=== PATIENT | female | born 1970 | race Hispanic/Latino ===

== ENCOUNTER 2023-08-28 23:39 | Inpatient (IN) | payer OTHER ==
[~2023-08-28] VITALS: Ht 152.4 cm; Wt 71.2 kg
[2023-08-28] MEDS ORDERED: DILTIAZEM HCL 5 MG/ML 5 ML VIAL IV STA (23:46)
[2023-08-28] MEDS ORDERED: ENOXAPARIN INJ 80 MG/0.8 ML SYR SC ONE (23:52)
[2023-08-28] MEDS: ENOXAPARIN INJ 80 MG/0.8 ML SYR SC SCH (23:54)
[2023-08-28] MEDS ORDERED: AMIODARONE HCL 100 ML IV ONE (23:59)
[2023-08-28] MEDS ORDERED: AMIODARONE 900MG 500 ML IV ONE (23:59)
[2023-08-29] VITALS (12 sets, daily range): BP systolic 112–152; BP diastolic 63–82; PULSE 71–158; RESP 12–18; TEMP 98.3; O2SAT 96–100
[2023-08-29] LABS: BASOPHILS # (AUTO) 0.1 (0.0-0.1); BASOPHILS % 0.9 % (0.0-1.0); EOSINOPHILS # (AUTO) 0.1 (0.0-0.4); EOSINOPHILS % 0.9 % (0.0-6.0); HEMATOCRIT 42.3 % (34.2-44.1); HEMOGLOBIN 14.4 g/dL (12.0-16.0); LYMPHOCYTES # (AUTO) 2.7 (1.0-3.2); LYMPHOCYTES % 28.7 % (18.0-39.1); MEAN CORPUSCULAR HEMOGLOBIN 31.1 pg (28-32); MEAN CORPUSCULAR VOLUME 91.4 fL (81-99); MONOCYTES # (AUTO) 0.8 (0.2-0.8); MONOCYTES % 8.1 % (4.4-11.3); NEUTROPHILS # (AUTO) 5.7 (2.1-6.9); NEUTROPHILS % 61.2 % (38.7-80.0); PLATELET COUNT 311 x10e3/uL (140-360); RED BLOOD COUNT 4.63 x10e6/uL (3.6-5.1); RED CELL DISTRIBUTION WIDTH 12.6 % (11.7-14.4); WHITE BLOOD COUNT 9.33 x10e3/uL (4.8-10.8)
[2023-08-29] MEDS ORDERED: AMIODARONE HCL 150 MG/100 ML BAG IV ONE
[2023-08-29] MEDS ORDERED: SODIUM CHLORIDE 0.9% 1000ML 1,000 ML IV ONE
[2023-08-29] MEDS ORDERED: AMIODARONE 900MG 900 MG in Premix Bag 1 BAG IV SCH ×2
[2023-08-29 00:09] LABS: ALBUMIN 4.4 g/dL (3.5-5.0); ALBUMIN/GLOBULIN RATIO 1.2 (0.8-2.0); ANION GAP 14.5 mmol/L (8-16); CALCIUM 9.3 mg/dL (8.4-10.2); CREATININE, SERUM 0.75 mg/dL (0.57-1.11); POTASSIUM 3.5 mmol/L (3.5-5.1)
[2023-08-29 00:21] LABS: INR 0.87; PROTHROMBIN TIME 12.3 seconds (11.9-14.5)
[2023-08-29 00:28] LABS: THYROID STIMULATING HORMONE 2.247 uIU/mL (0.350-4.940)
[2023-08-29] MEDS ORDERED: ONDANSETRON HCL INJ 2MG/ML 2ML 2 MG/ML VIAL IV PRN (01:15)
[2023-08-29 01:20] LABS: CLARITY,URINE SL CLOUDY (CLEAR); COLOR,URINE YELLOW (YELLOW); LEUKOCYTE ESTERASE ,URINE NEGATIVE (NEGATIVE)
[2023-08-29 01:21] LABS: KETONES,URINE NEGATIVE (NEGATIVE); NITRITE,URINE NEGATIVE (NEGATIVE); PROTEIN,URINE DIPSTICK NEGATIVE (NEGATIVE); URINE UROBILINOGEN 0.2 mg/dL (0.2 - 1)
[2023-08-29 01:24] LABS: BACTERIA,URINE FEW /HPF; EPITHELIAL CELLS,URINE MANY /LPF
[2023-08-29] MEDS ORDERED: DIGOXIN INJ 0.25 MG/ML 2 ML AMP IV ONE ×2 (06:15→07:00)
[2023-08-29] MEDS ORDERED: METOPROLOL TARTRATE INJ 1 MG/ML VIAL IV ONE (08:00)
[2023-08-29] MEDS ORDERED: ASPIRIN 81 MG CHEW TAB PO SCH (09:30)
[2023-08-29] MEDS ORDERED: METOPROLOL SUCCINATE 25 MG TAB XL PO SCH (09:30)
[2023-08-29] MEDS: ENOXAPARIN INJ 80 MG/0.8 ML SYR SC SCH (11:25)
[2023-08-29] MEDS ORDERED: ASPIRIN CHEW81 MG PO (21:07)
[2023-08-29] MEDS ORDERED: TOPROL XL25 MG PO (21:07)
== END 2023-08-29 20:00 | disposition home or self-care (01) | DRG 310 ==
LOC: ER 23:42 → ERHOLD 08-29 00:14 → ICU 08-29 11:42
PROVIDERS: ADMIT Internal Medicine; ATTEND Internal Medicine
DX: I48.0 Paroxysmal atrial fibrillation (principal); M25.511 Pain in right shoulder; R07.89 Other chest pain; G89.29 Other chronic pain; Z11.52 Encounter for screening for COVID-19
CPT/HCPCS: 36415; 71045; 80053; 81001; 82550; 83036; 84436; 84443; 84479; 84484; 85025; 85379; 85610; 85730; 93005; 93306; 94799; 99284; J1160; J1650; J7030; U0002